=== PATIENT | female | born 1995 | race American Indian/Alaskan Native ===

== ENCOUNTER 2018-10-28 05:05 | Emergency (ER) | payer BC ==
[2018-10-28 06:17] LABS: Basophils % (Auto) 0.8 % (0.0-1.8); Eosinophils # (Auto) 0.1 K/mm3 (0.0-0.4); Eosinophils % (Auto) 1.2 % (0.0-4.3); Hematocrit 39.3 % (30.3-42.9); Hemoglobin 12.6 gm/dl (10.1-14.3); Lymphocytes # (Auto) 2.4 K/mm3 (1.2-5.4); Mean Corpuscular HGB Conc 32 % (30-34); Mean Corpuscular Volume 92 fl (79-97); Monocytes # (Auto) 0.4 K/mm3 (0.0-0.8); Monocytes % (Auto) 7.2 % (0.0-7.3); Platelet Count 223 K/mm3 (140-440); Red Blood Count 4.28 M/mm3 (3.65-5.03); Red Cell Distribution Width 13.4 % (13.2-15.2)
[2018-10-28 06:33] LABS: Alanine Aminotransferase 12 units/L (7-56); Albumin 4.1 g/dL (3.9-5); BUN/Creatinine Ratio 11; Blood Urea Nitrogen 9 mg/dL (7-17); Calcium 9.6 mg/dL (8.4-10.2); Hemolysis Index 6
[2018-10-28 07:16] LABS: Bacteria,Urine 1+ /HPF (Negative); Bilirubin,Urine NEG (Negative); Blood,Urine SM (Negative); Color,Urine Yellow (Yellow); Mucus,Urine 2+ /HPF; Protein,Urine <15 mg/dL mg/dL (Negative); Urobilinogen,Urine < 2.0 mg/dL (<2.0)
--- NOTE | 2018-10-28 07:19 | XRay Report ---
CHEST 1 VIEW [id number] INDICATION / CLINICAL INFORMATION: Chest Pain. COMPARISON: None available. FINDINGS: SUPPORT DEVICES: None HEART / MEDIASTINUM: No significant abnormality. LUNGS / PLEURA: No significant pulmonary or pleural abnormality. No pneumothorax. ADDITIONAL FINDINGS: No significant additional findings. IMPRESSION: No significant acute abnormality Signer Name: Kumar Cazares MD Signed: 10/28/2018 7:14 AM Workstation Name: [id number]
--- NOTE | 2018-10-28 07:32 | Emergency Department Report ---
Vomiting/Diarrhea - HPI Chief Complaint: Abdominal Pain Stated Complaint: ABDOMINAL PAIN/CHEST PAIN Time Seen by Provider: 10/28/18 07:09 Duration: 5 Days Symptoms: Yes Able to Tolerate Fluids, No Watery Diarrhea, No Bloody diarrhea, No Fever, No Recent Unusual Foods, No Recent Untreated Water, No Recent use of Antibiotics, No Family w/ Similar Symptoms, No Contacts w/ Similar Symptoms, No Rash, No Hematuria, No Recent URI Symptoms Other History: 23 YO FEMALE WITH ABD PAIN THAT RAD TO CHEST. NOTHING MAKES BETTER. ROLLING IN BALL MAKES BETTER. NO N/V/D/FEVER OR CHILLS. NO DYSRURIA OR VAG DC. ED Review of Systems ROS: Stated complaint: ABDOMINAL PAIN/CHEST PAIN Other details as noted in HPI Comment: All other systems reviewed and negative ED Past Medical Hx - Past Medical History Previous Medical History?: No - Surgical History Past Surgical History?: No - Family History Family history: no significant - Social History Smoking Status: Former Smoker Substance Use Type: None - Medications Home Medications: Home Medications Medication Instructions Recorded Confirmed Last Taken Type Bisacodyl [Dulcolax suppos] 10 mg [place] QDAY PRN #10 supp.rect 10/28/18 Unknown Rx Polyethylene Glycol 3350 [Miralax] 119 gm PO DAILY #30 day 10/28/18 Unknown Rx Vomiting Diarrhea Exam - Exam General: Vital signs noted. No distress. Alert and acting appropriately. HEENT: Yes Moist Mucous Membranes, No Pharyngeal Erythema, No Pharyngeal Exudates Neck: No Adenopathy, No Rigidity Lungs: Yes Clear Lung Sounds, No Good Air Exchange, No Wheezes Heart exam: Regular: Yes, Murmur: No Abdomen: Tenderness: No, Peritoneal Signs: No, Distention: No, Hyperactive Bowel sounds: No Skin exam: Rash: No, Edema: No Neurologic: Alert and oriented, no deficits. Musculoskeletal: Unremarkable. ED Medical Decision Making - Lab Data Result diagrams: 10/28/18 05:41 10/28/18 05:41 - Radiology Data Radiology results: report reviewed, image reviewed - Medical Decision Making xray noted Labs 10/28/18 10/28/18 10/28/18 05:41 05:41 05:41 WBC 5.3 RBC 4.28 Hgb 12.6 Hct 39.3 MCV 92 MCH 29 MCHC 32 RDW 13.4 Plt Count 223 Lymph % (Auto) 45.0 H [place] % (Auto) 7.2 Eos % (Auto) 1.2 Baso % (Auto) 0.8 Lymph # 2.4 [place] # 0.4 Eos # 0.1 Baso # 0.0 Seg Neutrophils % 45.8 Seg Neutrophils # 2.4 Sodium 139 Potassium 4.6 Chloride 101.9 Carbon Dioxide 26 Anion Gap 16 BUN 9 Creatinine 0.8 Estimated GFR > 60 BUN/Creatinine Ratio 11 Glucose 98 Calcium 9.6 Total Bilirubin 0.20 AST 18 ALT 12 Alkaline Phosphatase 49 Total Protein 7.6 Albumin 4.1 Albumin/Globulin Ratio 1.2 HCG, Qual Negative Urine Color Urine Turbidity Urine pH Ur Specific [place] Urine Protein Urine Glucose (UA) Urine Ketones Urine Blood Urine Nitrite Urine Bilirubin Urine Urobilinogen Ur Leukocyte Esterase Urine WBC (Auto) Urine RBC (Auto) U Epithel Cells (Auto) Urine Bacteria (Auto) Urine Mucus 10/28/18 06:17 WBC RBC Hgb Hct MCV MCH MCHC RDW Plt Count Lymph % (Auto) [place] % (Auto) Eos % (Auto) Baso % (Auto) Lymph # [place] # Eos # Baso # Seg Neutrophils % Seg Neutrophils # Sodium Potassium Chloride Carbon Dioxide Anion Gap BUN Creatinine Estimated GFR BUN/Creatinine Ratio Glucose Calcium Total Bilirubin AST ALT Alkaline Phosphatase Total Protein Albumin Albumin/Globulin Ratio HCG, Qual Urine Color Yellow Urine Turbidity Cloudy Urine pH 6.0 Ur Specific [place] 1.017 Urine Protein <15 mg/dl Urine Glucose (UA) Neg Urine Ketones Neg Urine Blood Sm Urine Nitrite Neg Urine Bilirubin Neg Urine Urobilinogen < 2.0 Ur Leukocyte Esterase Neg Urine WBC (Auto) 2.0 Urine RBC (Auto) 2.0 U Epithel Cells (Auto) 26.0 H Urine Bacteria (Auto) 1+ Urine Mucus 2+ URINE NOTED PREG NEG LABS NOTED ABD SNT GAS X GIVEN W RELIEF DC HOME WITH DC PLAN OF CARE AND PCP FOLLOW UP. - Differential Diagnosis ro uti/ro urti/ro constipation Critical care attestation.: If time is entered above; I have spent that time in minutes in the direct care of this critically ill patient, excluding procedure time. ED Disposition Clinical Impression: Constipation, Abdominal pain Disposition: DC-01 TO HOME OR SELFCARE Is pt being admited?: No Does the pt Need Aspirin: No Condition: Stable Instructions: High Fiber Diet (ED), Abdominal Pain (ED) Additional Instructions: MEDS ORDERED TODAY IF PAIN PERSISTS FOLLOW UP WITH PCP REFERRAL BELOW HIGH FIBER DIET ALL LABS NORMAL TODAY Prescriptions: Bisacodyl [Dulcolax suppos] 10 mg [place] QDAY PRN #10 supp.rect PRN Reason: Constipation Polyethylene Glycol 3350 [Miralax] 119 gm PO DAILY #30 day Referrals: PRIMARY MD TAMAR [Primary Care Provider] - 3-5 Days JOHN CHRISTENSEN MD [Staff Physician] - 3-5 Days Forms: Work/School Release Form(ED) Time of Disposition: 07:29
[2018-10-28] MEDS ORDERED: MYLICON PO ONE (08:00)
== END 2018-10-28 08:06 | disposition home or self-care (01) ==
LOC: ED 05:05
DX: R10.9 Unspecified abdominal pain (principal); K59.00 Constipation, unspecified; Z87.891 Personal history of nicotine dependence
CPT/HCPCS: 36415; 71045; 80053; 81001; 84703; 85025; 93005; 93010

== ENCOUNTER 2018-11-25 20:20 | Emergency (ER) | payer BC ==
[2018-11-25 21:16] VITALS: BP 140/88
--- NOTE | 2018-11-25 21:18 | Event Note ---
ED Screening Note Date of service: 11/25/18 Time: 21:13 ED Screening Note: 23 y/o female comes cough time 1 week. Has taken thera time 1 dose. Has no fever no chills. No recent travels. This initial assessment/diagnostic orders/clinical plan/treatment(s) is/are subject to change based on patients health status, clinical progression and re- assessment by fellow clinical providers in the ED. Further treatment and workup at subsequent clinical providers discretion. Patient/guardian urged not to elope from the ED as their condition may be serious if not clinically assessed and managed. Initial orders include:
--- NOTE | 2018-11-25 22:05 | Emergency Department Report ---
- General Chief Complaint: Upper Respiratory Infection Stated Complaint: COUGH,CHEST PAIN,NAUSEA,ITCHY EYES Time Seen by Provider: 11/25/18 21:13 Source: patient Mode of arrival: Ambulatory Limitations: No Limitations - History of Present Illness Initial Comments: Patient is a 23-year-old Afro-L[place] female with no past medical history who presents to the ED with complaint of acute onset persistent severe nasal and sinus congestion, frontal sinus pressure and headache, sore throat and dry cough with pleuritic chest wall pain for the last 1 week. Patient denies fever, chill s, nausea, vomiting, dizziness, shortness of breath, abdominal pain, dysuria, urinary frequency and urgency, back pain or lack of appetite. MD Complaint: cough, sore throat, rhinorrhea, nasal congestion, sinus pain -: Sudden, week(s) (1) Severity: moderate Severity scale (0 -10): 5 Quality: aching Consistency: constant Improves With: nothing Worsens With: nothing Associated Symptoms: myalgias, headache, rhinorrhea, nasal congestion, sore throat, cough. denies: fever, chills, diaphoresis, stiff neck, chest pain, shortness of breath, nausea, vomiting, diarrhea, dysuria, weight loss, epistaxis, ear pain, other Treatments Prior to Arrival: none - Related Data Previous Rx's Medication Instructions Recorded Last Taken Type Bisacodyl [Dulcolax suppos] 10 mg [place] QDAY PRN #10 supp.rect 10/28/18 Unknown Rx Polyethylene Glycol 3350 [Miralax] 119 gm PO DAILY #30 day 10/28/18 Unknown Rx Azithromycin [Zithromax Z-SEAN] 250 mg PO DAILY #6 tablet 11/25/18 Unknown Rx Benzonatate [Tessalon Perles] 100 mg PO Q8HR #24 capsule 11/25/18 Unknown Rx Cetirizine HCl [Zyrtec 10mg tab] 10 mg PO DAILY #30 tablet 11/25/18 Unknown Rx Ibuprofen [Motrin] 400 mg PO Q8H PRN #15 tablet 11/25/18 Unknown Rx Allergies Allergy/AdvReac Type Severity Reaction Status Date / Time No Known Allergies Allergy Unverified 10/28/18 05:10 ED Review of Systems ROS: Stated complaint: COUGH,CHEST PAIN,NAUSEA,ITCHY EYES Other details as noted in HPI Constitutional: denies: chills, fever Eyes: denies: eye pain, eye discharge, vision change ENT: throat pain, congestion. denies: ear pain Respiratory: cough. denies: shortness of breath, wheezing Cardiovascular: denies: chest pain, palpitations Endocrine: no symptoms reported Gastrointestinal: denies: abdominal pain, nausea, diarrhea Genitourinary: denies: urgency, dysuria, discharge Musculoskeletal: denies: back pain, joint swelling, arthralgia Skin: denies: rash, lesions Neurological: headache. denies: weakness, paresthesias Psychiatric: denies: anxiety, depression Hematological/Lymphatic: denies: easy bleeding, easy bruising ED Past Medical Hx - Past Medical History Previous Medical History?: No - Surgical History Past Surgical History?: No - Social History Smoking Status: Unknown if ever smoked Substance Use Type: Alcohol - Medications Home Medications: Home Medications Medication Instructions Recorded Confirmed Last Taken Type Bisacodyl [Dulcolax suppos] 10 mg [place] QDAY PRN #10 supp.rect 10/28/18 Unknown Rx Polyethylene Glycol 3350 [Miralax] 119 gm PO DAILY #30 day 10/28/18 Unknown Rx Azithromycin [Zithromax Z-SEAN] 250 mg PO DAILY #6 tablet 11/25/18 Unknown Rx Benzonatate [Tessalon Perles] 100 mg PO Q8HR #24 capsule 11/25/18 Unknown Rx Cetirizine HCl [Zyrtec 10mg tab] 10 mg PO DAILY #30 tablet 11/25/18 Unknown Rx Ibuprofen [Motrin] 400 mg PO Q8H PRN #15 tablet 11/25/18 Unknown Rx ED Physical Exam - General Limitations: No Limitations General appearance: alert, in no apparent distress - Head Head exam: Present: atraumatic, normocephalic, normal inspection - Eye Eye exam: Present: normal appearance, PERRL, EOMI Pupils: Present: normal accommodation - ENT ENT exam: Present: normal orophraynx, mucous membranes moist, TM's normal bilaterally, normal external ear exam, other (grossly congested nasal passages) - Neck Neck exam: Present: normal inspection, full ROM. Absent: tenderness, lymphadenopathy - Respiratory Respiratory exam: Present: normal lung sounds bilaterally. Absent: respiratory distress, wheezes, rales, rhonchi, stridor, chest wall tenderness, accessory muscle use, decreased breath sounds, prolonged expiratory - Cardiovascular Cardiovascular Exam: Present: regular rate, normal rhythm, normal heart sounds. Absent: systolic murmur, diastolic murmur, rubs, gallop - GI/Abdominal GI/Abdominal exam: Present: soft, normal bowel sounds. Absent: tenderness, guarding, rebound, hyperactive bowel sounds, hypoactive bowel sounds, organomegaly - Extremities Exam Extremities exam: Present: normal inspection, full ROM, normal capillary refill - Back Exam Back exam: Present: normal inspection, full ROM. Absent: tenderness, CVA tenderness (R), CVA tenderness (L), muscle spasm, paraspinal tenderness, vertebral tenderness - Neurological Exam Neurological exam: Present: alert, oriented X3, CN II-XII intact, normal gait, reflexes normal - Psychiatric Psychiatric exam: Present: normal affect, normal mood - Skin Skin exam: Present: warm, dry, intact, normal color. Absent: rash ED Course Vital Signs 11/25/18 11/25/18 20:34 21:12 Temperature 98.6 F 98.6 F Pulse Rate 93 H 90 Respiratory 16 16 Rate Blood Pressure 115/77 140/88 O2 Sat by Pulse 99 100 Oximetry - Reevaluation(s) Reevaluation #1: 11/25/18 22:06 This is a 23-year-old female with no past medical history who presented to the ED with nasal and sinus congestion, dry cough, and frontal sinus pressure and headache for one week. In the ED, patient is alert and oriented 3 and is not in distress with normal vital signs. Patient was discharged home on medications and advised to follow-up with her primary care physician in 7-10 days for reevaluation or return to the ED immediately if symptoms get worse. ED Medical Decision Making - Medical Decision Making This is a 23-year-old female with no past medical history who presented to the ED with nasal and sinus congestion, dry cough, and frontal sinus pressure and headache for one week. In the ED, patient is alert and oriented 3 and is not in distress with normal vital signs. Patient was discharged home on medications and advised to follow-up with her primary care physician in 7-10 days for reevaluation or return to the ED immediately if symptoms get worse. - Differential Diagnosis sinusitis; bronchitis, acute URI Critical care attestation.: If time is entered above; I have spent that time in minutes in the direct care of this critically ill patient, excluding procedure time. ED Disposition Clinical Impression: Acute upper respiratory infection Acute bronchitis Qualifiers: Bronchitis organism: other organism Qualified Code(s): J20.8 - Acute bronchitis due to other specified organisms Acute frontal sinusitis Qualifiers: Recurrence: non-recurrent Qualified Code(s): J01.10 - Acute frontal sinusitis, unspecified Disposition: TO HOME OR SELFCARE Is pt being admited?: No Does the pt Need Aspirin: No Condition: Stable Instructions: Acute Bronchitis (ED), Upper Respiratory Infection (ED), Acute Bacterial Rhinosinusitis (ED) Additional Instructions: Take medication with food, drink plenty of fluids and follow-up with your primary care physician in 7-10 days for reevaluation. Return to the ED immediately if symptoms get worse. Prescriptions: Ibuprofen [Motrin] 400 mg PO Q8H PRN #15 tablet PRN Reason: Pain , Severe (7-10) Benzonatate [Tessalon Perles] 100 mg PO Q8HR #24 capsule Azithromycin [Zithromax Z-SEAN] 250 mg PO DAILY #6 tablet Cetirizine HCl [Zyrtec 10mg tab] 10 mg PO DAILY #30 tablet Referrals: [facility] [Outside] - 3-5 Days Time of Disposition: 22:02 Print Language: SLOVAK
== END 2018-11-25 22:25 | disposition home or self-care (01) ==
LOC: ED 20:20
DX: J01.10 Acute frontal sinusitis, unspecified (principal); J20.8 Acute bronchitis due to other specified organisms; J06.9 Acute upper respiratory infection, unspecified; Z79.899 Other long term (current) drug therapy
CPT/HCPCS: 99281

== ENCOUNTER 2019-04-07 20:09 | Emergency (ER) | payer BC ==
[2019-04-07 20:25] VITALS: BP 107/58
[2019-04-07] MEDS ORDERED: ACETAMINOPHEN 325 MG TAB PO ONE (21:00)
--- NOTE | 2019-04-07 21:05 | Event Note ---
ED Screening Note Date of service: 04/07/19 Time: 20:59 ED Screening Note: This is a 23 y.o. F. that presents to the ER with fever, chills, and myalgia since last night. Taking motrin Patient also reports urinary frequency and dysuria. Taking AZO which improved dysuria. This initial assessment/diagnostic orders/clinical plan/treatment(s) is/are subject to change based on patients health status, clinical progression and re- assessment by fellow clinical providers in the ED. Further treatment and workup at subsequent clinical providers discretion. Patient/guardian urged not to elope from the ED as their condition may be serious if not clinically assessed and managed. Initial orders include: Given analgesics Labs
[2019-04-07 21:59] LABS: HCG Qualitative,Urine Negative (Negative)
[2019-04-07 22:02] LABS: Bacteria,Urine 4+ /HPF (Negative); Bilirubin,Urine NEG (Negative); Blood,Urine MOD (Negative); Color,Urine Yellow (Yellow); Mucus,Urine 1+ /HPF; Protein,Urine <15 mg/dL mg/dL (Negative); Urobilinogen,Urine < 2.0 mg/dL (<2.0)
[2019-04-07 22:03] LABS: WBC,Urine > 182.0 /HPF (0.0-6.0)
[2019-04-07] MEDS ORDERED: LIDOCAINE-MPF (1%) 10 MG/1 ML VIAL 5 ML INFILTRATI ONE (22:45)
--- NOTE | 2019-04-07 23:10 | Emergency Department Report ---
ED General Adult HPI - General Chief complaint: Pain General Stated complaint: BODY CHILLS BODY ACHES HEADACHE FREQ URINATION Time Seen by Provider: 04/07/19 20:59 Source: patient Mode of arrival: Ambulatory Limitations: No Limitations - History of Present Illness Severity scale (0 -10): 0 - Related Data Previous Rx's Medication Instructions Recorded Last Taken Type Polyethylene Glycol 3350 [Miralax] 119 gm PO DAILY #30 day 10/28/18 Unknown Rx bisacodyL [Dulcolax suppos] 10 mg [place] QDAY PRN #10 supp.rect 10/28/18 Unknown Rx Azithromycin [Zithromax Z-SEAN] 250 mg PO DAILY #6 tablet 11/25/18 Unknown Rx Benzonatate [Tessalon Perles] 100 mg PO Q8HR #24 capsule 11/25/18 Unknown Rx Cetirizine HCl [Zyrtec 10mg tab] 10 mg PO DAILY #30 tablet 11/25/18 Unknown Rx Ibuprofen [Motrin] 400 mg PO Q8H PRN #15 tablet 11/25/18 Unknown Rx Sulfamethoxazole/Trimethoprim 1 each PO BID 7 Days #14 tablet 04/07/19 Unknown Rx [Bactrim DS TAB] Allergies Allergy/AdvReac Type Severity Reaction Status Date / Time No Known Allergies Allergy Verified 04/07/19 20:17 ED Review of Systems ROS: Stated complaint: BODY CHILLS BODY ACHES HEADACHE FREQ URINATION Other details as noted in HPI ED Past Medical Hx - Past Medical History Previous Medical History?: No - Surgical History Past Surgical History?: No - Social History Smoking Status: Never Smoker Substance Use Type: None - Medications Home Medications: Home Medications Medication Instructions Recorded Confirmed Last Taken Type Polyethylene Glycol 3350 [Miralax] 119 gm PO DAILY #30 day 10/28/18 Unknown Rx bisacodyL [Dulcolax suppos] 10 mg [place] QDAY PRN #10 supp.rect 10/28/18 Unknown Rx Azithromycin [Zithromax Z-SEAN] 250 mg PO DAILY #6 tablet 11/25/18 Unknown Rx Benzonatate [Tessalon Perles] 100 mg PO Q8HR #24 capsule 11/25/18 Unknown Rx Cetirizine HCl [Zyrtec 10mg tab] 10 mg PO DAILY #30 tablet 11/25/18 Unknown Rx Ibuprofen [Motrin] 400 mg PO Q8H PRN #15 tablet 11/25/18 Unknown Rx Sulfamethoxazole/Trimethoprim 1 each PO BID 7 Days #14 tablet 04/07/19 Unknown Rx [Bactrim DS TAB] ED Physical Exam - General Limitations: No Limitations ED Course Vital Signs 04/07/19 04/07/19 04/07/19 20:22 21:00 22:08 Temperature 100.5 F H Pulse Rate 151 H 136 H Respiratory 20 16 Rate Blood Pressure 107/58 O2 Sat by Pulse 98 100 Oximetry Critical care attestation.: If time is entered above; I have spent that time in minutes in the direct care of this critically ill patient, excluding procedure time. ED Disposition Clinical Impression: UTI (urinary tract infection) Qualifiers: Urinary tract infection type: acute cystitis Hematuria presence: without hematuria Qualified Code(s): N30.00 - Acute cystitis without hematuria Disposition: - TO HOME OR SELFCARE Is pt being admited?: No Does the pt Need Aspirin: No Condition: Stable Instructions: Urinary Tract Infection in Women (ED) Prescriptions: Sulfamethoxazole/Trimethoprim [Bactrim DS TAB] 1 each PO BID 7 Days #14 tablet Referrals: PRIMARY CARE, [Primary Care Provider] - 3-5 Days
== END 2019-04-07 23:27 | disposition home or self-care (01) ==
LOC: ED 20:09
DX: N39.0 Urinary tract infection, site not specified (principal); Z79.1 Long term (current) use of non-steroidal anti-inflammatories (NSAID); Z79.899 Other long term (current) drug therapy
CPT/HCPCS: 81001; 81025; 87400; 96372; 99283; J0696